=== PATIENT | male | born 1995 | race Two or more races ===

== ENCOUNTER 2022-06-14 12:20 | Emergency (ER) | payer MEDICAID, SELFPAY ==
--- NOTE | ~2022-06-14 | CT_ITS ---
EXAMINATION: CT ABDOMEN AND PELVIS WITHOUT CONTRAST CLINICAL INFORMATION: Left-sided flank pain. COMPARISON: 10/17/2019 CT scan of the abdomen and pelvis. TECHNIQUE: Multidetector volumetric imaging was performed from the superior aspect of the liver through the pubic symphysis. Sagittal and coronal reformatted images were obtained on the technologist's workstation. Lack of intravenous and oral contrast limits visceral evaluation. This CT examination was performed using dose optimization techniques as appropriate, variously including the following: *Automated exposure control *Adjustment of mA and/or kV according to patient size (this includes techniques or standardized protocols for targeted exams where dose is matched to indication/reason for exam; i.e. extremities or head) *Use of iterative reconstruction technique DLP: 492 mGy-cm FINDINGS: LUNG BASES: The visualized lung bases are unremarkable. LIVER, GALLBLADDER, AND BILIARY TREE: Unremarkable. PANCREAS: Unremarkable. SPLEEN: Unremarkable. ADRENAL GLANDS: Unremarkable. KIDNEYS AND URETERS: Mild increased medullary attenuation seen in the kidneys bilaterally. A larger interpolar calculus on the left measures 0.3 cm (image 56, series 5). Mild to moderate left hydronephrosis is seen caused by a 0.6 cm calculus in the mid one third of the left ureter (image 41, series 5). No right hydroureteronephrosis. BLADDER: Minimally distended limiting evaluation. No acute associated abnormality. GASTROINTESTINAL TRACT: The stomach and small bowel and appendix are unremarkable. The cecum extends into the right hemipelvis without abnormality. The colon and rectum are unremarkable. ABDOMINAL WALL: No significant hernia is appreciated. LYMPH NODES: No lymphadenopathy. VASCULAR: Unremarkable. PELVIC VISCERA: Unremarkable. OSSEOUS STRUCTURES: Unremarkable. CT/CT abdomen pelvis wo IV con IMPRESSION: 1. Mild to moderate left hydronephrosis caused by 0.6 cm calculus in the mid one third of the left ureter. 2. Mild increased medullary attenuation in the kidneys bilaterally is nonspecific, but can be seen with medullary nephrocalcinosis. Nonobstructing left intrarenal calculus.
[2022-06-14 12:35] VITALS: BP 158/85; PULSE 67; RESP 16; TEMP 36.6; O2SAT 97; BMI 23.7
--- NOTE | 2022-06-14 12:44 | ED_ITS ---
HPI - Male Genitourinary General Chief complaint: Urogenital-Male <NAHEED Villanueva - Last Filed: 06/14/22 12:49> Stated complaint: left side back pain <NAHEED Villanueva - Last Filed: 06/14/22 12:49> Time Seen by Provider: 06/14/22 13:52 <NAHEED Villanueva - Last Filed: 06/14/22 12:49> Source: patient <NAHEED Quintanilla - Last Filed: 06/14/22 17:40> Mode of arrival: ambulatory <NAHEED Quintanilla Last Filed: 06/14/22 17:40> Limitations: no limitations <NAHEED Quintanilla Last Filed: 06/14/22 17:40> History of Present Illness HPI Narrative: Pt is 26 y/o male with history of left kidney stones cc left side lower back stabbing pain 09/03 that woke him up from sleep this morning at 0500.? The pain radiates to the left flank/LLQ. ? He vomited twice around 0700 and had one bout of diarrhea, last ate at 0900. He states he had stones in the left kidney when he was a child and then had them two years ago and treated here.? He has been working out for the last month and when the low back pain initially started 3 weeks ago, he thought it was just muscular. Today he said it felt more like kidney stones and he had to strain to urinate and the urine had a strong odor .? His pain is worse when not just sitting upright while being very still. He is sexually active with only his and is not concerned for STIs.? He denies fever, chills, chest pain, sob, groin pain/swelling, extremity pain.? <NAHEED Quintanilla Last Filed: 06/14/22 17:40> MD Complaint: other (Left flank pain/left lower quadrant) <NAHEED Quintanilla Last Filed: 06/14/22 17:40> Onset (ago): hour(s) (Prior to arrival) <NAHEED Quintanilla Last Filed: 06/14/22 17:40> Duration: constant <NAHEED Quintanilla Last Filed: 06/14/22 17:40> Severity: moderate <NAHEED Quintanilla Last Filed: 06/14/22 17:40> Quality: aching <NAHEED Quintanilla Last Filed: 06/14/22 17:40> Relieving factors: none <NAHEED Quintanilla Last Filed: 06/14/22 17:40> Exacerbating factors: none <NAHEED Quintanilla Last Filed: 06/14/22 17:40> Context: other (History of kidney stone) <NAHEED Quintanilla Last Filed: 06/14/22 17:40> Associated symptoms: Reports other (Nausea and vomiting and diarrhea) <NAHEED Quintanilla Last Filed: 06/14/22 17:40> Related Data Sexually active: Yes <NAHEED Quintanilla Last Filed: 06/14/22 17:40> Home medications: Previous Rx's Medication Instructions Recorded ketorolac 10 mg tablet 10 mg PO Q8H PRN pain #14 tabs 06/14/22 oxycodone 5 mg tablet 5 mg PO Q6H PRN pain #14 tabs 06/14/22 prednisone 20 mg tablet 40 mg PO DAILY inflammation 5 days 06/14/22 #10 tabs tamsulosin 0.4 mg capsule (Flomax) 0.4 mg PO DAILY 5 days #5 caps 06/14/22 <NAHEED Villanueva Last Filed: 06/14/22 12:49> Allergies/Adverse reactions: Allergies Allergy/AdvReac Type Severity Reaction Status Date / Time No Known Allergies Allergy Verified 06/14/22 12:40 [No Known Allergies*] <NAHEED Villanueva Last Filed: 06/14/22 12:49> Review of Systems Review of Systems: Constitutional : No Weight loss, No Fever, No Chills, No Night Sweats, No Fatigue, No Malaise ENT/Mouth : No Hearing loss, No Ear Pain, No Nasal Congestion, No Sinus Pain, No Hoarseness, No sore throat, No Rhinorrhea, No Swallowing Difficulty Eyes: No Eye Pain, No Swelling, No Redness, No Foreign Body, No Discharge, No Vision Changes Cardiovascular : No Chest Pain, No SOB, No Dyspnea on Exertion, No Orthopnea, No Edema, No Palpitations Respiratory : No Cough, No Sputum, No Wheezing, No Smoke Exposure, No Dyspnea Gastrointestinal : + Nausea/vomiting/diarrhea/left lower quadrant abdominal pain, No Constipation, No Hematochezia, No Melena Genitourinary : no irregular bleeding, No Dysuria, No Urinary Frequency, No Hematuria, No Urinary Incontinence, No Urgency, + left Flank Pain, No Urinary Flow Changes, No Hesitancy Musculoskeletal : No joint pain, No Myalgias, No Joint Swelling Skin : No Skin Lesions, No rash Neuro : No Weakness, No Numbness, No Paresthesias, No Loss of Consciousness, No Dizziness, No Headache Psych : No Anxiety/Panic, No Depression, No SI/HI/AH/VH, No Social Issues, Heme/Lymph: No Bruising, No Bleeding,No Lymphadenopathy Endocrine : No Polyuria, No Polydipsia, No Temperature Intolerance <NAHEED Quintanilla - Last Filed: 06/14/22 17:40> Yes all other systems are reviewed and are negative <NAHEED Quintanilla - Last Filed: 06/14/22 17:40> [facility] Past Medical History Attestation statement: The following information was validated with the patient. <NAHEED Quintanilla - Last Filed: 06/14/22 17:40> Source: old records reviewed and nursing notes reviewed <NAHEED Quintanilla - Last Filed: 06/14/22 17:40> Social History Social History: Social History Advance Directives: No Advance Directives Information Provided: Yes <NAHEED Villanueva - Last Filed: 06/14/22 12:49> Physical Exam Vital Signs: Vital Signs: Last Vital Signs Temp 97.8 F 06/14/22 13:49 Pulse 60 06/14/22 13:49 Resp 14 06/14/22 13:49 BP 160/76 H 06/14/22 13:49 Pulse Ox 97 06/14/22 13:49 O2 Del Method 06/14/22 13:49 BMI result Body Mass Index 23.7 <NAHEED Villanueva - Last Filed: 06/14/22 12:49> Vital Signs: Last Vital Signs Temp 97.8 F 06/14/22 13:49 Pulse 60 03/21/23 13:49 Resp 14 06/14/22 13:49 BP 160/76 H 06/14/22 13:49 Pulse Ox 97 06/14/22 13:49 O2 Del Method 06/14/22 13:49 BMI result Body Mass Index 23.7 vital signs have been reviewed as normal and appeared to be correct. Blood pressure normal. Heart rate normal. Respiration rate normal. Temperature normal. Oxygen saturation normal. <NAHEED Quintanilla - Last Filed: 06/14/22 17:40> Appearance: Alert. Oriented X3. No acute distress. Head: Normal external exam. Normocephalic. Eyes: PERRLA. EOMI. Conjunctiva and sclera normal. Eyelids normal. ENT: Pharynx normal. Uvula midline. Moist mucous membranes. No trismus noted. No drooling noted. No muffled voice noted. Neck: Normal inspection. Neck supple. FROM. No adenopathy. No meningeal signs. CVS: Normal heart rate and rhythm. Heart sound normal. No murmurs noted. Pulses normal throughout. Respiratory: No respiratory distress. Painless inspiration. Breath sounds normal. No wheezes/rales/rhonchi noted. Chest nontender. No accessory muscle usage noted or decreased air movement noted. Abdomen: Soft and tenderness to palpation to left lower quadrant with guarding. Nondistended. No rigidity. Bowel sounds normal in all 4 quadrants. No distention noted. No organomegaly noted. No visible injury noted. No rebound tenderness. Negative Rovsing sign. Negative obturator's sign. Negative psoas sign. Negative Haddad sign. Back: + left CVA tenderness. No right CVA tenderness is noted. Full range of motion noted. Skin: Skin warm and dry. Normal skin color. Normal skin turgor. No rashes/lesions/lacerations noted. Extremities: Extremities exhibit normal range of motion. Extremities nontender. Neuro: Oriented X 3. No motor deficit. No sensory deficit. Reflexes normal. Normal steady gait. CN's II-XII intact bilaterally? <NAHEED Quintanilla - Last Filed: 06/14/22 17:40> Course Course Course Narrative: This is an RME: Additional HPI, ROS, PE not included below will be deferred to primary provider. 26-year-old male presents for evaluation of left- sided flank pain with associated nausea, vomiting, subjective fevers and chills pain is intermittent in nature, severe. Patient tells me has a history of stones in this feels like the previous time he had a stone. Denies , headache, vision changes, dizziness, chest pain, shortness of breath, numbness, tingling, dysuria, urinary frequency, urgency, changes asthma bowel habits. No red flag symptoms for back pain. Physical exam discomfort with palpation overlying left flank (+ CVA tenderness on L.) . Patient appears uncomfortable. Diaphoretic. Plan at this time basic labs, urine, dry CT of abdomen and pelvis rule out stones ? pylo <NAHEED Villanueva - Last Filed: 06/14/22 12:49> Reevaluation(s) Reevaluation #1: This patient is presenting with left lower quadrant/left flank pain that started few hours prior to arrival he has a history of kidney stone patient exam is consistent with kidney stone. Differential diagnosis also includes UTI versus pyelonephritis versus diverticulitis although less likely. Abdominal exam without peritoneal signs. No evidence of acute abdomen at this time. Well appearing. No suspicion for acute hepatobiliary disease including acute cholecystitis. Less likely to represent acute pancreatitis, be UD including perforation, acute infectious process such as pneumonia, or hepatitis, atypical appendicitis, vascular catastrophe, bowel obstruction or viscus perforation presentation not consistent with acute emergent other causes of abdominal pain at this time. Labs were obtained and patient anion gap 10. AST 42. ALT 89. Otherwise all other labs are within normal limits. UA revealed blood otherwise no evidence of UTI. Patient negative for COVID. CT scan abdomen pelvis with IV contrast revealed [id number] left hydronephrosis caused by a 0.6 cm calculus in the mid 1/3 of the left ureter otherwise no other acute processes. Therefore I discussed this case with Urology Dr. Simentla she recommended controlling the patient's pain with Toradol, pain medications, IV fluids and Flomax an outpatient follow-up with her. Therefore patient received a L of IV fluids, Toradol, Flomax and IV steroids and patient feels much better pain is controlled he is not having any nausea or vomiting he is actually hungry and wants to be discharged so he can eat his own food not the hospital food. Will DC home with instructions return if any new or worsening symptoms follow up with Urology. Patient understands agrees with this plan. <NAHEED Quintanilla - Last Filed: 06/14/22 17:40> Time: 17:39 <NAHEED Quintanilla - Last Filed: 06/14/22 17:40> Medications Administered Discontinued Medications Generic Name Dose Route Start Last Admin Trade Name Paul PRN Reason Stop Dose Admin Dexamethasone Sodium Phosphate 10 mg 06/14/22 15:21 06/14/22 15:37 Dexamethasone Sod Phosphate 10 Mg/Ml Vial IVPUSH 06/14/22 15:22 10 mg ONCE ONE Administration Sodium Chloride 1,000 mls @ 999 mls/hr 06/14/22 15:30 06/14/22 16:50 Ns IVCONT 06/14/22 16:30 Infused .Q1H1M BIBI Infusion Ketorolac Tromethamine 30 mg 06/14/22 14:36 06/14/22 14:44 Ketorolac Tromethamine 30 Mg/Ml Vial IM 06/14/22 14:37 30 mg ONCE ONE Administration Ondansetron HCl 4 mg 06/14/22 12:44 06/14/22 14:17 Ondansetron Odt 4 Mg Tab.Rapdis TRANSLINGU 06/14/22 12:45 4 mg ONCE ONE Administration Tamsulosin HCl 0.4 mg 06/14/22 15:21 06/14/22 15:34 Tamsulosin Hcl 0.4 Mg Capsule PO 06/14/22 15:22 0.4 mg ONCE ONE Administration <NAHEED iVllanueva - Last Filed: 06/14/22 12:49> Medications Administered Discontinued Medications Generic Name Dose Route Start Last Admin Trade Name Freq PRN Reason Stop Dose Admin Dexamethasone Sodium Phosphate 10 mg 06/14/22 15:21 06/14/22 15:37 Dexamethasone Sod Phosphate 10 Mg/Ml Vial IVPUSH 06/14/22 15:22 10 mg ONCE ONE Administration Sodium Chloride 1,000 mls @ 999 mls/hr 06/14/22 15:30 06/14/22 16:50 Ns IVCONT 06/14/22 16:30 Infused .Q1H1M BIBI Infusion Ketorolac Tromethamine 30 mg 06/14/22 14:36 06/14/22 14:44 Ketorolac Tromethamine 30 Mg/Ml Vial IM 06/14/22 14:37 30 mg ONCE ONE Administration Ondansetron HCl 4 mg 06/14/22 12:44 06/14/22 14:17 Ondansetron Odt 4 Mg Tab.Rapdis TRANSLINGU 06/14/22 12:45 4 mg ONCE ONE Administration Tamsulosin HCl 0.4 mg 06/14/22 15:21 06/14/22 15:34 Tamsulosin Hcl 0.4 Mg Capsule PO 06/14/22 15:22 0.4 mg ONCE ONE Administration <NAHEED Quintanilla - Last Filed: 06/14/22 17:40> Medical Decision Making Consult Healthcare Provider Management of the patient was discussed with: [employer] (Dr. Simental about the patient's kidney stone she recommended outpatient follow-up with pain control) <NAHEED Quintanilla - Last Filed: 06/14/22 17:40> Lab Data MDM Lab Attestation statement: I reviewed the patient's lab results. <NAHEED Quintanilla - Last Filed: 06/14/22 17:40> Result Diagrams: 06/14/22 14:11 06/14/22 14:11 <NAHEED Villanueva - Last Filed: 06/14/22 12:49> Labs: Lab Results 06/14/22 06/14/22 06/14/22 Range/Units 13:20 14:11 14:11 WBC 10.8 (4.8-10.8) X10*3/uL RBC 5.28 (4.60-5.80) X10*6/uL Hgb 15.8 (14.0-18.0) g/dl Hct 45.7 (42.0-52.0) % MCV 86.6 (80.0-98.0) fL MCH 29.9 (27.0-33.0) pg MCHC 34.6 (31.0-36.0) g/dl RDW 12.7 (11.0-16.0) % Plt Count 256 (160-400) X10*3/uL MPV 10.8 (9.4-12.4) fL Immature Gran % (Auto) 0.6 H (0.0-0.4) % Neut % (Auto) 81.2 H (45-73) % Lymph % (Auto) 11.7 L (20-40) % Dunn % (Auto) 5.8 (2-11) % Eos % (Auto) 0.2 (0-4) % Baso % (Auto) 0.5 (0-2) % Lymph # (Auto) 1.3 (1.2-4.9) X10*3/uL Dunn # (Auto) 0.6 (0.1-1.2) X10*3/uL Eos # (Auto) 0.0 (0.0-0.4) X10*3/uL Baso # (Auto) 0.1 (0.0-0.2) X10*3/uL Abs Immat Gran (auto) 0.06 H (0.00-0.03) X10*3/uL Absolute Neuts (auto) 8.8 H (2.0-8.3) x10*3/uL Absolute Nucleated RBC 0.000 (0.0-0.012) X10*3/uL Nucleated RBC % (auto) 0.0 (0.0-0.2) /100WBC Sodium 140 (135-145) mmol/L Potassium 4.6 (3.3-5.1) mmol/L Chloride 107 (96-108) mmol/L Carbon Dioxide 28 (22-29) mmol/L Anion Gap 10 L (12-20) BUN 9 (9-16) mg/dL Creatinine 0.85 (0.5-1.4) mg/dL Estim Creat Clear Calc 142.7 Estimated GFR > 60 Random Glucose 100 (60-115) mg/dL Calcium 9.9 (8.4-10.2) mg/dL Magnesium 1.8 (1.6-2.6) mg/dL Total Bilirubin 0.6 (0.0-1.0) mg/dL AST 42 H (5-37) U/L ALT 89 H (0-40) U/L Alkaline Phosphatase 99 (39-117) U/L Total Protein 6.9 (6.5-8.0) g/dL Albumin 4.6 (3.5-5.0) g/dL Urine Color Yellow Urine Appearance Clear Urine pH 6.0 (5.0-9.0) Ur Specific [place] 1.015 (1.005-1.025) Urine Protein Negative (Neg-Trace) mg/dL Urine Glucose (UA) Negative (Negative) mg/dL Urine Ketones Negative (Negative) mg/dL Urine Blood Small (1+) H (Negative) Urine Nitrite Negative (Negative) Ur Leukocyte Esterase Negative (Negative) Urine RBC 11-20 H (0-2) /HPF Urine WBC 0-5 (0-5) /HPF Ur Squamous Epith Cells 0-2 (0-2) /HPF Urine Bacteria None Seen (None Seen) Hyaline Casts 0-2 (0-2) /LPF COVID-19 ([facility]) (Negative) COVID-19 Clin Com 06/14/22 Range/Units 14:11 WBC (4.8-10.8) X10*3/uL RBC (4.60-5.80) X10*6/uL Hgb (14.0-18.0) g/dl Hct (42.0-52.0) % MCV (80.0-98.0) fL MCH (27.0-33.0) pg MCHC (31.0-36.0) g/dl RDW (11.0-16.0) % Plt Count (160-400) X10*3/uL MPV (9.4-12.4) fL Immature Gran % (Auto) (0.0-0.4) % Neut % (Auto) (45-73) % Lymph % (Auto) (20-40) % Dunn % (Auto) (2-11) % Eos % (Auto) (0-4) % Baso % (Auto) (0-2) % Lymph # (Auto) (1.2-4.9) X10*3/uL Dunn # (Auto) (0.1-1.2) X10*3/uL Eos # (Auto) (0.0-0.4) X10*3/uL Baso # (Auto) (0.0-0.2) X10*3/uL Abs Immat Gran (auto) (0.00-0.03) X10*3/uL Absolute Neuts (auto) (2.0-8.3) x10*3/uL Absolute Nucleated RBC (0.0-0.012) X10*3/uL Nucleated RBC % (auto) (0.0-0.2) /100WBC Sodium (135-145) mmol/L Potassium (3.3-5.1) mmol/L Chloride (96-108) mmol/L Carbon Dioxide (22-29) mmol/L Anion Gap (12-20) BUN (9-16) mg/dL Creatinine (0.5-1.4) mg/dL Estim Creat Clear Calc Estimated GFR Random Glucose (60-115) mg/dL Calcium (8.4-10.2) mg/dL Magnesium (1.6-2.6) mg/dL Total Bilirubin (0.0-1.0) mg/dL AST (5-37) U/L ALT (0-40) U/L Alkaline Phosphatase (39-117) U/L Total Protein (6.5-8.0) g/dL Albumin (3.5-5.0) g/dL Urine Color Urine Appearance Urine pH (5.0-9.0) Ur Specific [place] (1.005-1.025) Urine Protein (Neg-Trace) mg/dL Urine Glucose (UA) (Negative) mg/dL Urine Ketones (Negative) mg/dL Urine Blood (Negative) Urine Nitrite (Negative) Ur Leukocyte Esterase (Negative) Urine RBC (0-2) /HPF Urine WBC (0-5) /HPF Ur Squamous Epith Cells (0-2) /HPF Urine Bacteria (None Seen) Hyaline Casts (0-2) /LPF COVID-19 ([facility]ILENE) Negative (Negative) COVID-19 Clin Com See Note <NAHEED Villanueva - Last Filed: 06/14/22 12:49> Lab Results 06/14/22 06/14/22 06/14/22 Range/Units 13:20 14:11 14:11 WBC 10.8 (4.8-10.8) X10*3/uL RBC 5.28 (4.60-5.80) X10*6/uL Hgb 15.8 (14.0-18.0) g/dl Hct 45.7 (42.0-52.0) % MCV 86.6 (80.0-98.0) fL MCH 29.9 (27.0-33.0) pg MCHC 34.6 (31.0-36.0) g/dl RDW 12.7 (11.0-16.0) % Plt Count 256 (160-400) X10*3/uL MPV 10.8 (9.4-12.4) fL Immature Gran % (Auto) 0.6 H (0.0-0.4) % Neut % (Auto) 81.2 H (45-73) % Lymph % (Auto) 11.7 L (20-40) % Dunn % (Auto) 5.8 (2-11) % Eos % (Auto) 0.2 (0-4) % Baso % (Auto) 0.5 (0-2) % Lymph # (Auto) 1.3 (1.2-4.9) X10*3/uL Dunn # (Auto) 0.6 (0.1-1.2) X10*3/uL Eos # (Auto) 0.0 (0.0-0.4) X10*3/uL Baso # (Auto) 0.1 (0.0-0.2) X10*3/uL Abs Immat Gran (auto) 0.06 H (0.00-0.03) X10*3/uL Absolute Neuts (auto) 8.8 H (2.0-8.3) x10*3/uL Absolute Nucleated RBC 0.000 (0.0-0.012) X10*3/uL Nucleated RBC % (auto) 0.0 (0.0-0.2) /100WBC Sodium 140 (135-145) mmol/L Potassium 4.6 (3.3-5.1) mmol/L Chloride 107 (96-108) mmol/L Carbon Dioxide 28 (22-29) mmol/L Anion Gap 10 L (12-20) BUN 9 (9-16) mg/dL Creatinine 0.85 (0.5-1.4) mg/dL Estim Creat Clear Calc 142.7 Estimated GFR > 60 Random Glucose 100 (60-115) mg/dL Calcium 9.9 (8.4-10.2) mg/dL Magnesium 1.8 (1.6-2.6) mg/dL Total Bilirubin 0.6 (0.0-1.0) mg/dL AST 42 H (5-37) U/L ALT 89 H (0-40) U/L Alkaline Phosphatase 99 (39-117) U/L Total Protein 6.9 (6.5-8.0) g/dL Albumin 4.6 (3.5-5.0) g/dL Urine Color Yellow Urine Appearance Clear Urine pH 6.0 (5.0-9.0) Ur Specific [place] 1.015 (1.005-1.025) Urine Protein Negative (Neg-Trace) mg/dL Urine Glucose (UA) Negative (Negative) mg/dL Urine Ketones Negative (Negative) mg/dL Urine Blood Small (1+) H (Negative) Urine Nitrite Negative (Negative) Ur Leukocyte Esterase Negative (Negative) Urine RBC 11-20 H (0-2) /HPF Urine WBC 0-5 (0-5) /HPF Ur Squamous Epith Cells 0-2 (0-2) /HPF Urine Bacteria None Seen (None Seen) Hyaline Casts 0-2 (0-2) /LPF COVID-19 (AID[facility]E) (Negative) COVID-19 Clin Com 06/14/22 Range/Units 14:11 WBC (4.8-10.8) X10*3/uL RBC (4.60-5.80) X10*6/uL Hgb (14.0-18.0) g/dl Hct (42.0-52.0) % MCV (80.0-98.0) fL MCH (27.0-33.0) pg MCHC (31.0-36.0) g/dl RDW (11.0-16.0) % Plt Count (160-400) X10*3/uL MPV (9.4-12.4) fL Immature Gran % (Auto) (0.0-0.4) % Neut % (Auto) (45-73) % Lymph % (Auto) (20-40) % Dunn % (Auto) (2-11) % Eos % (Auto) (0-4) % Baso % (Auto) (0-2) % Lymph # (Auto) (1.2-4.9) X10*3/uL [place] # (Auto) (0.1-1.2) X10*3/uL Eos # (Auto) (0.0-0.4) X10*3/uL Baso # (Auto) (0.0-0.2) X10*3/uL Abs Immat Gran (auto) (0.00-0.03) X10*3/uL Absolute Neuts (auto) (2.0-8.3) x10*3/uL Absolute Nucleated RBC (0.0-0.012) X10*3/uL Nucleated RBC % (auto) (0.0-0.2) /100WBC Sodium (135-145) mmol/L Potassium (3.3-5.1) mmol/L Chloride (96-108) mmol/L Carbon Dioxide (22-29) mmol/L Anion Gap (12-20) BUN (9-16) mg/dL Creatinine (0.5-1.4) mg/dL Estim Creat Clear Calc Estimated GFR Random Glucose (60-115) mg/dL Calcium (8.4-10.2) mg/dL Magnesium (1.6-2.6) mg/dL Total Bilirubin (0.0-1.0) mg/dL AST (5-37) U/L ALT (0-40) U/L Alkaline Phosphatase (39-117) U/L Total Protein (6.5-8.0) g/dL Albumin (3.5-5.0) g/dL Urine Color Urine Appearance Urine pH (5.0-9.0) Ur Specific [place] (1.005-1.025) Urine Protein (Neg-Trace) mg/dL Urine Glucose (UA) (Negative) mg/dL Urine Ketones (Negative) mg/dL Urine Blood (Negative) Urine Nitrite (Negative) Ur Leukocyte Esterase (Negative) Urine RBC (0-2) /HPF Urine WBC (0-5) /HPF Ur Squamous Epith Cells (0-2) /HPF Urine Bacteria (None Seen) Hyaline Casts (0-2) /LPF COVID-19 ([facility]) Negative (Negative) COVID-19 Clin Com See Note <NAHEED Quintanilla - Last Filed: 06/14/22 17:40> Independent Interpretation I performed an independent interpretation of an: CT Scan (CT scan abdomen pelvis with IV contrast reviewed by myself agreeable radiology report) <NAHEED Quintanilla - Last Filed: 06/14/22 17:40> Radiology Impression Discussion of test interpretation with radiology: I have reviewed the radiologist's reading. <NAHEED Quintanilla - Last Filed: 06/14/22 17:40> Radiologist Impression: FINDINGS: LUNG BASES: The visualized lung bases are unremarkable.? LIVER, GALLBLADDER, AND BILIARY TREE: Unremarkable. PANCREAS: Unremarkable.? SPLEEN: Unremarkable.? ADRENAL GLANDS: Unremarkable.? KIDNEYS AND URETERS: Mild increased medullary attenuation seen in the kidneys bilaterally. A larger interpolar calculus on the left measures 0.3 cm (image 56, series 5). Mild to moderate left hydronephrosis is seen caused by a 0.6 cm calculus in the mid one third of the left ureter (image 41, series 5). No right hydroureteronephrosis. BLADDER: Minimally distended limiting evaluation. No acute associated abnormality.? GASTROINTESTINAL TRACT: The stomach and small bowel and appendix are unremarkable. The cecum extends into the right hemipelvis without abnormality. The colon and rectum are unremarkable. ABDOMINAL WALL: No significant hernia is appreciated.? LYMPH NODES: No lymphadenopathy. VASCULAR: Unremarkable. PELVIC VISCERA: Unremarkable.? OSSEOUS STRUCTURES: Unremarkable.? CT/CT abdomen pelvis wo IV con IMPRESSION: 1.? Mild to moderate left hydronephrosis caused by 0.6 cm calculus in the mid one third of the left ureter. 2.? Mild increased medullary attenuation in the kidneys bilaterally is nonspecific, but can be seen with medullary nephrocalcinosis. Nonobstructing left intrarenal calculus. <NAHEED Quintanilla Last Filed: 06/14/22 17:40> Prescription Management I considered prescription management with: Pain Medication <NAHEED Quintanilla Last Filed: 06/14/22 17:40> Will DC home oxycodone, Toradol for pain control kidney stones <NAHEED Quintanilla Last Filed: 06/14/22 17:40> Chronic Conditions Patient?s care impacted by: Other (Kidney stone) <NAHEED Quintanilla Last Filed: 06/14/22 17:40> Critical Care Time Critical Care Time Critical Care Time: Yes <NAHEED Quintanilla Last Filed: 06/14/22 17:40> Total Critical Care Time: 60 <NAHEED Quintanilla Last Filed: 06/14/22 17:40> Attestation: I personally attest to this time spent taking care of the patient <NAHEED Quintanilla Filed: 06/14/22 17:40> Discharge Plan Discharge Clinical Impression: Ureterolithiasis <NAHEED Villanueva - Last Filed: 06/14/22 12:49> Patient Disposition: Home, Self-Care <NAHEED Villanueva - Last Filed: 06/14/22 12:49> Instructions: Ureteral Stones (ED) <NAHEED Villanueva - Last Filed: 06/14/22 12:49> Prescriptions: New ketorolac 10 mg tablet 10 mg PO Q8H PRN (Reason: pain) Qty: 14 0RF oxycodone 5 mg tablet 5 mg PO Q6H PRN (Reason: pain) Qty: 14 0RF Rx Instructions: Partial Fill upon patient request. tamsulosin [Flomax] 0.4 mg capsule 0.4 mg PO DAILY 5 Days Qty: 5 0RF prednisone 20 mg tablet 40 mg PO DAILY 5 Days Qty: 10 0RF <NAHEED Villanueva - Last Filed: 06/14/22 12:49> Referrals: [facility] [Primary Care Provider] - (Call to make a follow-up appointment as needed) Cristhian Mcmanus III, MD [Physician] - (Call to make a follow-up appointment) <NAHEED Villanueva - Last Filed: 06/14/22 12:49> Stand Alone Forms: Work/School Release <NAHEED Villanueva - Last Filed: 06/14/22 12:49>
[2022-06-14 13:26] LABS: Appearance Urine Clear; Color Urine Yellow; Glucose Urine UA Negative (Negative); Leukocyte Esterase Urine Negative (Negative); Nitrite Urine Negative (Negative); Specific Gravity - Urine 1.015 (1.005-1.025); UMIC TRIGGER UACC YES; Urine Blood Small (1+) (Negative); Urine Ketones Negative (Negative); Urine Protein Negative (Neg-Trace)
[2022-06-14 13:31] LABS: Bacteria Urine None Seen (None Seen); Hyaline Casts Urine 0-2 /LPF (0-2); Squamous Epithelial Cell Urine 0-2 /HPF (0-2); WBC Urine 0-5 /HPF (0-5)
[2022-06-14 13:49] VITALS: BP 160/76; PULSE 60; RESP 14; TEMP 36.6; O2SAT 97
[2022-06-14 14:15] LABS: MANUAL DIFF FLAG NO
[2022-06-14 14:17] LABS: Basophils Absolute Auto 0.1 X10*3/uL (0.0-0.2); Basophils Percent Auto 0.5 % (0-2); Eosinophils Percent Auto 0.2 % (0-4); Hematocrit 45.7 % (42.0-52.0); Hemoglobin 15.8 g/dl (14.0-18.0); Imm Gran Abs Auto 0.06 X10*3/uL (0.00-0.03); Imm Gran Pct Auto 0.6 % (0.0-0.4); Lymphocytes Absolute Auto 1.3 X10*3/uL (1.2-4.9); Lymphocytes Percent Auto 11.7 % (20-40); Mean Corpuscular HGB Conc 34.6 g/dl (31.0-36.0); Mean Corpuscular Hemoglobin 29.9 pg (27.0-33.0); Mean Corpuscular Volume 86.6 fL (80.0-98.0); Mean Platelet Volume 10.8 fL (9.4-12.4); Monocytes Absolute Auto 0.6 X10*3/uL (0.1-1.2); Monocytes Percent Auto 5.8 % (2-11); Neutrophils Absolute Auto 8.8 x10*3/uL (2.0-8.3); Neutrophils Percent Auto 81.2 % (45-73); Platelet Count 256 X10*3/uL (160-400); Red Blood Count 5.28 X10*6/uL (4.60-5.80); Red Cell Distribution Width 12.7 % (11.0-16.0); White Blood Count 10.8 X10*3/uL (4.8-10.8)
[2022-06-14] MEDS: Ondansetron ODT 4 MG TAB.RAPDIS TRANSLINGU (14:17)
[2022-06-14 14:31] LABS: COVID-19 Test Negative (Negative); IDNOW Serial# BCCEAD1C
[2022-06-14 14:36] LABS: Alanine Aminotransferase 89 U/L (0-40); Albumin Level 4.6 g/dL (3.5-5.0); Alkaline Phosphatase 99 U/L (39-117); Anion Gap 10 (12-20); Aspartate Amino Transferase 42 U/L (5-37); Bilirubin Total 0.6 mg/dL (0.0-1.0); Blood Urea Nitrogen 9 mg/dL (9-16); Calcium 9.9 mg/dL (8.4-10.2); Carbon Dioxide 28 mmol/L (22-29); Chloride 107 mmol/L (96-108); Creatinine Clr Calc Pharmacy 142.7; Estimated Glomerular Filt Rate > 60; Glucose Random 100 mg/dL (60-115); Magnesium 1.8 mg/dL (1.6-2.6); Potassium 4.6 mmol/L (3.3-5.1); Sodium 140 mmol/L (135-145); Total Protein 6.9 g/dL (6.5-8.0)
--- NOTE | 2022-06-14 14:37 | ED.MALEGU ---
HPI - Male Genitourinary General Chief complaint: Urogenital-Male Stated complaint: left side back pain Time Seen by Provider: 06/14/22 13:52 Source: patient Mode of arrival: ambulatory Limitations: no limitations History of Present Illness HPI Narrative: Pt is 26 y/o male with history of left kidney stones cc left side lower back stabbing pain 09/03 that woke him up from sleep this morning at 0500. The pain radiates to the left flank/LLQ. He vomited twice around 0700 and had one bout of diarrhea, last ate at 0900. He states he had stones in the left kidney when he was a child and then had them two years ago and treated here. He has been working out for the last month and when the low back pain initially started 3 weeks ago, he thought it was just muscular. Today he said it felt more like kidney stones and he had to strain to urinate and the urine had a strong odor . His pain is worse when not just sitting upright while being very still. He is sexually active with only his and is not concerned for STIs. He denies fever, chills, chest pain, sob, groin pain/swelling, extremity pain. Related Data Allergies Allergy/AdvReac Type Severity Reaction Status Date / Time No Known Allergies Allergy Verified 06/14/22 12:40 [No Known Allergies*] [facility] Social History Social History Advance Directives: No Advance Directives Information Provided: Yes Physical Exam Vital Signs: Vital Signs: Last Vital Signs Temp 97.8 F 06/14/22 13:49 Pulse 60 06/14/22 13:49 Resp 14 06/14/22 13:49 BP 160/76 H 06/14/22 13:49 Pulse Ox 97 06/14/22 13:49 O2 Del Method 06/14/22 13:49 BMI result Body Mass Index 23.7 Medications Administered Discontinued Medications Generic Name Dose Route Start Last Admin Trade Name Freq PRN Reason Stop Dose Admin Ondansetron HCl 4 mg 06/14/22 12:44 06/14/22 14:17 Ondansetron Odt 4 Mg Tab.Rapdis TRANSLINGU 06/14/22 12:45 4 mg ONCE ONE Administration Medical Decision Making Lab Data 06/14/22 14:11 06/14/22 14:11 Labs: Lab Results 06/14/22 06/14/22 06/14/22 Range/Units 13:20 14:11 14:11 WBC 10.8 (4.8-10.8) X10*3/uL RBC 5.28 (4.60-5.80) X10*6/uL Hgb 15.8 (14.0-18.0) g/dl Hct 45.7 (42.0-52.0) % MCV 86.6 (80.0-98.0) fL MCH 29.9 (27.0-33.0) pg MCHC 34.6 (31.0-36.0) g/dl RDW 12.7 (11.0-16.0) % Plt Count 256 (160-400) X10*3/uL MPV 10.8 (9.4-12.4) fL Immature Gran % (Auto) 0.6 H (0.0-0.4) % Neut % (Auto) 81.2 H (45-73) % Lymph % (Auto) 11.7 L (20-40) % [place] % (Auto) 5.8 (2-11) % Eos % (Auto) 0.2 (0-4) % Baso % (Auto) 0.5 (0-2) % Lymph # (Auto) 1.3 (1.2-4.9) X10*3/uL [place] # (Auto) 0.6 (0.1-1.2) X10*3/uL Eos # (Auto) 0.0 (0.0-0.4) X10*3/uL Baso # (Auto) 0.1 (0.0-0.2) X10*3/uL Abs Immat Gran (auto) 0.06 H (0.00-0.03) X10*3/uL Absolute Neuts (auto) 8.8 H (2.0-8.3) x10*3/uL Absolute Nucleated RBC 0.000 (0.0-0.012) X10*3/uL Nucleated RBC % (auto) 0.0 (0.0-0.2) /100WBC Sodium 140 (135-145) mmol/L Potassium 4.6 (3.3-5.1) mmol/L Chloride 107 (96-108) mmol/L Carbon Dioxide 28 (22-29) mmol/L Anion Gap 10 L (12-20) BUN 9 (9-16) mg/dL Creatinine 0.85 (0.5-1.4) mg/dL Estim Creat Clear Calc 142.7 Estimated GFR > 60 Random Glucose 100 (60-115) mg/dL Calcium 9.9 (8.4-10.2) mg/dL Magnesium 1.8 (1.6-2.6) mg/dL Total Bilirubin 0.6 (0.0-1.0) mg/dL AST 42 H (5-37) U/L ALT 89 H (0-40) U/L Alkaline Phosphatase 99 (39-117) U/L Total Protein 6.9 (6.5-8.0) g/dL Albumin 4.6 (3.5-5.0) g/dL Urine Color Yellow Urine Appearance Clear Urine pH 6.0 (5.0-9.0) Ur Specific [place] 1.015 (1.005-1.025) Urine Protein Negative (Neg-Trace) mg/dL Urine Glucose (UA) Negative (Negative) mg/dL Urine Ketones Negative (Negative) mg/dL Urine Blood Small (1+) H (Negative) Urine Nitrite Negative (Negative) Ur Leukocyte Esterase Negative (Negative) Urine RBC 11-20 H (0-2) /HPF Urine WBC 0-5 (0-5) /HPF Ur Squamous Epith Cells 0-2 (0-2) /HPF Urine Bacteria None Seen (None Seen) Hyaline Casts 0-2 (0-2) /LPF COVID-19 ([facility]) (Negative) COVID-19 Clin Com 06/14/22 Range/Units 14:11 WBC (4.8-10.8) X10*3/uL RBC (4.60-5.80) X10*6/uL Hgb (14.0-18.0) g/dl Hct (42.0-52.0) % MCV (80.0-98.0) fL MCH (27.0-33.0) pg MCHC (31.0-36.0) g/dl RDW (11.0-16.0) % Plt Count (160-400) X10*3/uL MPV (9.4-12.4) fL Immature Gran % (Auto) (0.0-0.4) % Neut % (Auto) (45-73) % Lymph % (Auto) (20-40) % [place] % (Auto) (2-11) % Eos % (Auto) (0-4) % Baso % (Auto) (0-2) % Lymph # (Auto) (1.2-4.9) X10*3/uL [place] # (Auto) (0.1-1.2) X10*3/uL Eos # (Auto) (0.0-0.4) X10*3/uL Baso # (Auto) (0.0-0.2) X10*3/uL Abs Immat Gran (auto) (0.00-0.03) X10*3/uL Absolute Neuts (auto) (2.0-8.3) x10*3/uL Absolute Nucleated RBC (0.0-0.012) X10*3/uL Nucleated RBC % (auto) (0.0-0.2) /100WBC Sodium (135-145) mmol/L Potassium (3.3-5.1) mmol/L Chloride (96-108) mmol/L Carbon Dioxide (22-29) mmol/L Anion Gap (12-20) BUN (9-16) mg/dL Creatinine (0.5-1.4) mg/dL Estim Creat Clear Calc Estimated GFR Random Glucose (60-115) mg/dL Calcium (8.4-10.2) mg/dL Magnesium (1.6-2.6) mg/dL Total Bilirubin (0.0-1.0) mg/dL AST (5-37) U/L ALT (0-40) U/L Alkaline Phosphatase (39-117) U/L Total Protein (6.5-8.0) g/dL Albumin (3.5-5.0) g/dL Urine Color Urine Appearance Urine pH (5.0-9.0) Ur Specific [place] (1.005-1.025) Urine Protein (Neg-Trace) mg/dL Urine Glucose (UA) (Negative) mg/dL Urine Ketones (Negative) mg/dL Urine Blood (Negative) Urine Nitrite (Negative) Ur Leukocyte Esterase (Negative) Urine RBC (0-2) /HPF Urine WBC (0-5) /HPF Ur Squamous Epith Cells (0-2) /HPF Urine Bacteria (None Seen) Hyaline Casts (0-2) /LPF COVID-19 ([facility]) Negative (Negative) COVID-19 Clin Com See Note
[2022-06-14] MEDS: Ketorolac Tromethamine 30 MG/ML VIAL IM (14:44)
[2022-06-14] MEDS: Tamsulosin HCL 0.4 MG CAPSULE PO (15:34)
[2022-06-14] MEDS: dexAMETHasone sod phosphate 10 MG/ML VIAL IVPUSH (15:37)
[2022-06-14] MEDS: 0.9 % Sodium Chloride 1,000 ML 999 ML IVCONT (15:43)
== END 2022-06-14 17:46 | disposition home or self-care (01) ==
PROVIDERS: Physician Assistant; Emergency Provider Emergency Medicine
DX: N20.1 Calculus of ureter (principal); R10.32 Left lower quadrant pain; M54.50 Low back pain, unspecified; Z20.822 Contact with and (suspected) exposure to COVID-19; Z20.828 Contact with and (suspected) exposure to other viral communicable diseases; Z79.899 Other long term (current) drug therapy
CPT/HCPCS: 74176; 80053; 81001; 83735; 85025; 87635; 96361; 96372; 96374; 99284; J1100; J1885

== ENCOUNTER 2022-08-16 13:57 | Emergency (ER) | payer MEDICAID, SELFPAY ==
--- NOTE | ~2022-08-16 | US_ITS ---
EXAMINATION: US RETROPERITONEAL LIMITED (RENAL ONLY) CLINICAL INFORMATION: Flank pain. COMPARISON: Previous CT of the abdomen and pelvis most recent May 2022 TECHNIQUE: Grayscale and color imaging of the kidneys FINDINGS: RIGHT KIDNEY: 12 x 5 x 4.5 cm (SAG x AP x TRV). The kidney is normal in size, contour, and echogenicity. Renal cortical thickness is normal. No calculi or focal parenchymal lesions. No hydronephrosis. LEFT KIDNEY: 12.5 x 7 x 5 cm (SAG x AP x TRV). The kidney is normal in size, contour, and echogenicity. Renal cortical thickness is normal. There is moderate left hydronephrosis and left proximal and mid ureteral dilatation. This is similar to previous CT May 2022. The left distal ureter is not visualized. No left renal stone is appreciated by ultrasound. US/US renal BI IMPRESSION: Moderate left hydronephrosis and ureteral dilatation similar to previous CT of the abdomen and pelvis May 2022.
--- NOTE | ~2022-08-16 | CT_ITS ---
EXAMINATION: CT ABDOMEN AND PELVIS WITHOUT CONTRAST CLINICAL INFORMATION: Left hydronephrosis and ureteral dilatation. Nausea and vomiting. COMPARISON: Previous renal ultrasound from earlier the same day and CT of the abdomen and pelvis 06/14/2022 TECHNIQUE: Multidetector volumetric imaging was performed from the superior aspect of the liver through the pubic symphysis. Sagittal and coronal reformatted images were obtained on the technologist's workstation. This CT examination was performed using dose optimization techniques as appropriate, variously including the following: *Automated exposure control *Adjustment of mA and/or kV according to patient size (this includes techniques or standardized protocols for targeted exams where dose is matched to indication/reason for exam; i.e. extremities or head) *Use of iterative reconstruction technique DLP: 465 mGy-cm FINDINGS: LUNG BASES: The visualized lung bases are unremarkable. LIVER, GALLBLADDER, AND BILIARY TREE: The liver is normal in size, shape, and attenuation. No focal hepatic lesion or biliary ductal dilatation is present. The gallbladder is unremarkable with no evidence of radiopaque gallstones, gallbladder wall thickening, or obvious pericholecystic inflammatory changes. PANCREAS: Unremarkable. SPLEEN: Unremarkable. ADRENAL GLANDS: Unremarkable. KIDNEYS AND URETERS: Mild left ureteral dilatation from a 3 x 5 mm left UVJ stone and probable adjacent more proximal 2 mm stone. There is some stranding of the fat surrounding the left ureter. No appreciable left hydronephrosis. No renal stone. Increased central medullary attenuation. BLADDER: Unremarkable. GASTROINTESTINAL TRACT: Diverticulosis. No evidence of diverticulitis. Fall and large bowel is otherwise unremarkable.. The appendix is unremarkable. ABDOMINAL WALL: No significant hernia is appreciated. LYMPH NODES: Normal. VASCULAR: Unremarkable. PELVIC VISCERA: Unremarkable. OSSEOUS STRUCTURES: Unremarkable. CT/CT abdomen pelvis wo IV con IMPRESSION: Mild left ureteral dilatation from left UVJ stone(s). Hydronephrosis is decreased from ultrasound from earlier the same day. Fleischner guidelines were followed.
[2022-08-16 14:05] VITALS: BP 150/88; PULSE 56; O2SAT 100
--- NOTE | 2022-08-16 14:05 | ED.ABDPAIN ---
HPI - Abdominal Pain General Chief Complaint: Abdominal Pain Stated Complaint: DIZZY,LT SIDE BACK/GROIN/ABD PAIN X 2 MONTHS Time Seen by Provider: 08/16/22 20:38 Source: patient Mode of arrival: ambulatory Limitations: no limitations History of Present Illness HPI narrative: Patient history of kidney stone about 2 months ago noticed similar pain 2 days ago radiating to the left lower abdomen and to the testicle just prior to arrival assoc with nausea and vomiting about 3 times no fever no chills no gross hematuria Related Data Previous Rx's Medication Instructions Recorded ketorolac 10 mg tablet 10 mg PO Q8H PRN pain #14 tabs 06/14/22 oxycodone 5 mg tablet 5 mg PO Q6H PRN pain #14 tabs 06/14/22 prednisone 20 mg tablet 40 mg PO DAILY inflammation 5 days 06/14/22 #10 tabs tamsulosin 0.4 mg capsule (Flomax) 0.4 mg PO DAILY 5 days #5 caps 06/14/22 ibuprofen 600 mg tablet 600 mg PO Q6H PRN fever or pain 08/16/22 #30 tabs oxycodone-acetaminophen 5 mg-325 1 tab PO Q6H PRN pain #20 tabs 08/16/22 mg tablet (Percocet) tamsulosin 0.4 mg capsule (Flomax) 0.4 mg PO BEDTIME #14 caps 08/16/22 Allergies Allergy/AdvReac Type Severity Reaction Status Date / Time No Known Allergies Allergy Verified 06/14/22 12:40 [No Known Allergies*] Review of Systems Review of Systems Yes all other systems are reviewed and are negative [facility] Social History Social History Alcohol intake: current Smoked in Last 30 Days: No Use of substances other than those prescribed or required for medical reasons: No Advance Directives: No Advance Directives Information Provided: Yes Physical Exam ED Vital Signs: Vital Signs - 24 hr 08/16/22 14:07 08/16/22 20:11 Temperature 97.6 F 98.4 F Pulse Rate 55 69 Respiratory Rate 18 18 Blood Pressure 145/83 H 140/89 H Pulse Oximetry 99 97 Oxygen Delivery Method Room Air Room Air BMI result Body Mass Index 25.1 Appearance: Alert. Oriented X3. No acute distress. ENT: Pharynx normal. Oral Mucosa moist Neck: Normal inspection. Neck supple. CVS: Normal heart rate and rhythm. Pulses normal. Respiratory: No respiratory distress. Equal air entry bilateral, no wheezing/rales/rhonchi Abdomen: Soft and nontender. Bowel sounds are present, no mass palpable, L CVA tenderness Skin: Skin warm and dry. Normal skin color. Normal skin turgor. Extremities: No lower extremity edema. No calf tenderness Neuro: Oriented X 3. Course Course Course Narrative: RME: 26-year-old male with past history of renal stones, presenting to the ED via EMS c/o L flank pain radiating to L groin w/assoc N/V and dizziness 2/2 pain x 30mins. Also reports feels itchy when urinates. Patient was seen & treated in our ED on 06/14/22 diagnosed w/left ureter stone w/hydro, admits sx feel similar to prior Patient pale appears uncomfortable, emesis bag emptied in triage Labs, UA, US ordered Full HPI, ROS and PE to be performed by primary ED provider. Medical Decision Making Lab Data MDM Lab Attestation statement: I reviewed the patient's lab results. 08/16/22 14:28 08/16/22 14:28 Labs: Lab Results 08/16/22 08/16/22 08/16/22 Range/Units 14:28 14:28 20:34 WBC 18.2 H (4.8-10.8) X10*3/uL RBC 5.46 (4.60-5.80) X10*6/uL Hgb 16.1 (14.0-18.0) g/dl Hct 47.2 (42.0-52.0) % MCV 86.4 (80.0-98.0) fL MCH 29.5 (27.0-33.0) pg MCHC 34.1 (31.0-36.0) g/dl RDW 12.9 (11.0-16.0) % Plt Count 286 (160-400) X10*3/uL MPV 10.4 (9.4-12.4) fL Immature Gran % (Auto) 0.8 H (0.0-0.4) % Neut % (Auto) 80.5 H (45-73) % Lymph % (Auto) 13.2 L (20-40) % [place] % (Auto) 4.8 (2-11) % Eos % (Auto) 0.3 (0-4) % Baso % (Auto) 0.4 (0-2) % Lymph # (Auto) 2.4 (1.2-4.9) X10*3/uL [place] # (Auto) 0.9 (0.1-1.2) X10*3/uL Eos # (Auto) 0.1 (0.0-0.4) X10*3/uL Baso # (Auto) 0.1 (0.0-0.2) X10*3/uL Abs Immat Gran (auto) 0.15 H (0.00-0.03) X10*3/uL Absolute Neuts (auto) 14.7 H (2.0-8.3) x10*3/uL Absolute Nucleated RBC 0.000 (0.0-0.012) X10*3/uL Nucleated RBC % (auto) 0.0 (0.0-0.2) /100WBC Sodium 140 (135-145) mmol/L Potassium 4.3 (3.3-5.1) mmol/L Chloride 107 (96-108) mmol/L Carbon Dioxide 26 (22-29) mmol/L Anion Gap 11 L (12-20) BUN 10 (9-16) mg/dL Creatinine 1.05 (0.5-1.4) mg/dL Estim Creat Clear Calc 115.5 Estimated GFR > 60 Random Glucose 161 H (60-115) mg/dL Calcium 9.8 (8.4-10.2) mg/dL Magnesium 1.6 (1.6-2.6) mg/dL Total Bilirubin 1.0 (0.0-1.0) mg/dL Direct Bilirubin 0.3 (0.0-0.5) mg/dL AST 31 (5-37) U/L ALT 52 H (0-40) U/L Alkaline Phosphatase 99 (39-117) U/L Total Protein 7.7 (6.5-8.0) g/dL Albumin 4.7 (3.5-5.0) g/dL Lipase 26 (8-78) U/L Urine Color Yellow Urine Appearance Clear Urine pH 8.5 (5.0-9.0) Ur Specific [place] 1.015 (1.005-1.025) Urine Protein Trace (Neg-Trace) mg/dL Urine Glucose (UA) Negative (Negative) mg/dL Urine Ketones Negative (Negative) mg/dL Urine Blood Large (3+) H (Negative) Urine Nitrite Negative (Negative) Ur Leukocyte Esterase Small (1+) H (Negative) Urine RBC >20 H (0-2) /HPF Urine WBC 6-10 H (0-5) /HPF Ur Squamous Epith Cells 0-2 (0-2) /HPF Urine Bacteria None Seen (None Seen) Hyaline Casts 3-5 (0-2) /LPF Radiology Impression Discussion of test interpretation with radiology: I have reviewed the radiologist's reading. Radiologist Impression: CT/CT abdomen pelvis wo IV con IMPRESSION: Mild left ureteral dilatation from left UVJ stone(s). Hydronephrosis is decreased from ultrasound from earlier the same day. ? Medications Administered Discontinued Medications Generic Name Dose Route Start Last Admin Trade Name Flaquitoq PRN Reason Stop Dose Admin Sodium Chloride 1,000 mls @ 999 mls/hr 08/16/22 14:15 08/16/22 21:54 Ns IV 08/16/22 15:15 Infused .Q1H1M BIBI Infusion Ketorolac Tromethamine 30 mg 08/16/22 21:01 08/16/22 21:22 Ketorolac Tromethamine 30 Mg/Ml Vial IVPUSH 08/16/22 21:02 30 mg ONCE ONE Administration Morphine Sulfate 4 mg 08/16/22 21:01 08/16/22 21:21 Morphine Sulfate 4 Mg/Ml Cartridge IVPUSH 08/16/22 21:02 4 mg ONCE ONE Administration Protocol Ondansetron HCl 4 mg 08/16/22 21:01 08/16/22 21:21 Ondansetron Hcl 4 Mg/2 Ml Vial IVPUSH 08/16/22 21:02 4 mg ONCE ONE Administration Tamsulosin HCl 0.4 mg 08/16/22 21:01 08/16/22 21:19 Tamsulosin Hcl 0.4 Mg Capsule PO 08/16/22 21:02 0.4 mg ONCE ONE Administration Discharge Plan Discharge Clinical Impression: Calculus of kidney Patient Disposition: Home, Self-Care Instructions: Kidney Stones (ED) Additional Instructions: Drink plenty of fluids Pain medication as prescribed Follow-up with urologist if pain continues for further management Flomax daily until stone passes Prescriptions: New oxycodone-acetaminophen [Percocet] 5-325 mg tablet 1 tab PO Q6H PRN (Reason: pain) Qty: 20 0RF Rx Instructions: Partial Fill upon patient request. ibuprofen 600 mg tablet 600 mg PO Q6H PRN (Reason: fever or pain) Qty: 30 0RF tamsulosin [Flomax] 0.4 mg capsule 0.4 mg PO BEDTIME Qty: 14 0RF No Action ketorolac 10 mg tablet 10 mg PO Q8H PRN (Reason: pain) Qty: 14 0RF oxycodone 5 mg tablet 5 mg PO Q6H PRN (Reason: pain) Qty: 14 0RF Rx Instructions: Partial Fill upon patient request. tamsulosin [Flomax] 0.4 mg capsule 0.4 mg PO DAILY 5 Days Qty: 5 0RF prednisone 20 mg tablet 40 mg PO DAILY 5 Days Qty: 10 0RF Referrals: Abelardo Singh MD [Physician] - 1 week Stand Alone Forms: Work/School Release Interventions: ED Discharge Assessment Last Done: 08/16/22 23:07 Discharge Date/Time: 08/16/22 23:08
[2022-08-16 14:07] VITALS: BP 145/83; PULSE 55; RESP 18; TEMP 36.4; O2SAT 99; BMI 25.1
[2022-08-16 14:33] LABS: MANUAL DIFF FLAG NO
[2022-08-16 14:36] LABS: Basophils Absolute Auto 0.1 X10*3/uL (0.0-0.2); Basophils Percent Auto 0.4 % (0-2); Eosinophils Absolute Auto 0.1 X10*3/uL (0.0-0.4); Eosinophils Percent Auto 0.3 % (0-4); Hematocrit 47.2 % (42.0-52.0); Hemoglobin 16.1 g/dl (14.0-18.0); Imm Gran Abs Auto 0.15 X10*3/uL (0.00-0.03); Imm Gran Pct Auto 0.8 % (0.0-0.4); Lymphocytes Absolute Auto 2.4 X10*3/uL (1.2-4.9); Lymphocytes Percent Auto 13.2 % (20-40); Mean Corpuscular HGB Conc 34.1 g/dl (31.0-36.0); Mean Corpuscular Hemoglobin 29.5 pg (27.0-33.0); Mean Corpuscular Volume 86.4 fL (80.0-98.0); Mean Platelet Volume 10.4 fL (9.4-12.4); Monocytes Absolute Auto 0.9 X10*3/uL (0.1-1.2); Monocytes Percent Auto 4.8 % (2-11); Neutrophils Absolute Auto 14.7 x10*3/uL (2.0-8.3); Neutrophils Percent Auto 80.5 % (45-73); Platelet Count 286 X10*3/uL (160-400); Red Blood Count 5.46 X10*6/uL (4.60-5.80); Red Cell Distribution Width 12.9 % (11.0-16.0); White Blood Count 18.2 X10*3/uL (4.8-10.8)
[2022-08-16 14:53] LABS: Alanine Aminotransferase 52 U/L (0-40); Albumin Level 4.7 g/dL (3.5-5.0); Alkaline Phosphatase 99 U/L (39-117); Anion Gap 11 (12-20); Aspartate Amino Transferase 31 U/L (5-37); Bilirubin Direct 0.3 mg/dL (0.0-0.5); Blood Urea Nitrogen 10 mg/dL (9-16); Calcium 9.8 mg/dL (8.4-10.2); Carbon Dioxide 26 mmol/L (22-29); Chloride 107 mmol/L (96-108); Creatinine Clr Calc Pharmacy 115.5; Estimated Glomerular Filt Rate > 60; Glucose Random 161 mg/dL (60-115); Lipase 26 U/L (8-78); Magnesium 1.6 mg/dL (1.6-2.6); Potassium 4.3 mmol/L (3.3-5.1); Sodium 140 mmol/L (135-145); Total Protein 7.7 g/dL (6.5-8.0)
[2022-08-16 20:11] VITALS: BP 140/89; PULSE 69; RESP 18; TEMP 36.9; O2SAT 97
[2022-08-16 20:42] LABS: Appearance Urine Clear; Color Urine Yellow; Glucose Urine UA Negative (Negative); Leukocyte Esterase Urine Small (1+) (Negative); Nitrite Urine Negative (Negative); PH 8.5 (5.0-9.0); Specific Gravity - Urine 1.015 (1.005-1.025); UMIC TRIGGER UACC YES; Urine Blood Large (3+) (Negative); Urine Ketones Negative (Negative); Urine Protein Trace mg/dL (Neg-Trace)
[2022-08-16 20:45] LABS: Bacteria Urine None Seen (None Seen); RBC Urine >20 /HPF (0-2); Squamous Epithelial Cell Urine 0-2 /HPF (0-2); UACC Culture Trigger YES
[2022-08-16] MEDS: 0.9 % Sodium Chloride 1,000 ML 999 ML IV (20:46)
[2022-08-16] MEDS: Tamsulosin HCL 0.4 MG CAPSULE PO (21:19)
[2022-08-16] MEDS: Morphine Sulfate 4 MG/ML CARTRIDGE IVPUSH (21:21)
[2022-08-16] MEDS: ondansetron HCL 4 MG/2 ML VIAL IVPUSH (21:21)
[2022-08-16] MEDS: Ketorolac Tromethamine 30 MG/ML VIAL IVPUSH (21:22)
--- NOTE | 2022-08-16 21:35 | MHC.EDTECH ---
This Tech assumed care of this patient upon arrival. Pt changed into hospital gown. Vital signs done and urine sent to lab for processing
--- NOTE | 2022-08-16 22:57 | PC.NURSE ---
pt assessed at d/c. denies any pain
== END 2022-08-16 23:08 | disposition home or self-care (01) ==
PROVIDERS: Physician Assistant; Emergency Provider Internal Medicine
DX: N20.0 Calculus of kidney (principal); R10.9 Unspecified abdominal pain; R42 Dizziness and giddiness; R11.2 Nausea with vomiting, unspecified
CPT/HCPCS: 36415; 74176; 76775; 80048; 80076; 81001; 83690; 83735; 85025; 87086; 96361; 96374; 96375; 99284; J1885; J2270; J2405